=== PATIENT | male | born 1935 | race Caucasian/White ===

== ENCOUNTER 2016-06-15 12:58 | Emergency (ER) | payer MEDICARE, OTHER ==
[~2016-06-15] VITALS: Ht 175.3 cm; Wt 103.0 kg
[~2016-06-15 12:58] MED LIST: ASPI-860 PO; HCT25T PO; IBUP1TAB14 PO; MELA1TAB19 PO; OMEG1CAP24 PO; UBID100C8 PO
--- OUTSIDE RECORDS SUMMARY | 2016-06-15 13:02 | XMS REPORT | Continuity of Care Document ---
Author Author [facility] Organization [facility] Address Unknown Phone Unavailable Care Team Providers Care Air Deodorizer Servicer Name Role Phone MaryRex zavala PCP [phone] Source Comments Some departments are not documenting in the electronic medical record. If you do not see the information that you expected, contact Release of Information in the Health Information Management department at [phone] for further assistance in locating additional records.[facility] Active Allergies and Adverse Reactions Allergen Noted Date Severity Reactions Comments Benazepril 10/10/2014 Low COUGH Pcn 10/10/2014 Medium HIVES Current Medications Prescription Sig. Disp. Refills Start End Date Status Date Ibuprofen-Diphenhydramine Take 2 Caps by mouth at Active HCl (ADVIL PM) 200-25 mg bedtime daily. cap aspirin 81 mg chewable Take 81 mg by mouth Active tablet daily. coenzyme Q10(+) 100 mg Take 100 mg by mouth Active cap twice daily. hydrochlorothiazide Take 25 mg by mouth Active (HYDRODIURIL) 25 mg daily. tablet melatonin 10 mg tab Take 1 Tab by mouth at Active bedtime daily. guaiFENesin LA (MUCINEX) Take 600 mg by mouth Active 600 mg tablet twice daily as needed. GLUCOSAMINE HCL/CHONDR MARRERO Take 1 Tab by mouth twice Active A NA (OSTEO BI-FLEX PO) daily. metoprolol (LOPRESSOR) 25 Take 25 mg by mouth twice Active mg tablet daily. losartan (COZAAR) 25 mg Take 12.5 mg by mouth Active tablet daily. amiodarone (PACERONE) 100 Take 100 mg by mouth Active mg tablet daily. Active Problems Problem Noted Date NUBIA (obstructive sleep apnea) 11/22/2014 VT (ventricular tachycardia) ([facility]) 11/21/2014 Overview: 09/21/14 Several episodes of near syncope: HM applied. 4/16/15 HM: Sustained, 30-45 sec runs of VT at rate of 190 bpm. Started on metaprolol and losartan. 09/29/14 ECHO: EF 43% - Decrease in EF from 2006 at 65-70%. Trace-mild MR, Trace AR and Trace TI. PAP is normal. Impaired LV diastolic compliance. 10/11/14 [id number] LV function. VT originating from LV summit area, possibly epicarial. Unsuccessful ablation of the clinical VT and PVC's, possibly modified. Inducible VT was noted at the end of the procedure. 10/13/14 VT RFA (DJL) Normal LV function.. VT originating from LVOT area (anterior and septal). Successful ablation of the clinical VT's and PVC's, antegrade and retrograde. Inducible VT's different than clinical ones were noted at the end of the procedure. Resume amio and mexiletine 10/14/14 ECOD-Moderately depressed left ventricular systolic function. EF~ 40%, Sclerotic aortic valve, No significant pericardial effusion, Mildly dilated sinuses of valsalva 11/03/[address] Sonny Fraga Cardiology ([facility] [place], [place]). Patient has not had recurrent episodes of VT that he was aware of since his RFA. L ast Assessment & Plan: No further ventricular arrhythmias post ablation. His amiodarone was decreased to 100 mg daily and his mexiletine was decreased to 150 mg twice daily. Acute blood loss anemia 10/17/2014 HLD (hyperlipidemia) 10/12/2014 Last Assessment & Plan: On recommended statin therapy. CAD (coronary artery disease) 10/10/2014 Overview: Cath on 10/03/14 at [facility] with non obstructive CAD - LAD with 70%, 30% in circ L ast Assessment & Plan: Mr. Rushing denies any new symptomatic complaints suggestive of ischemia. HTN (hypertension) 10/10/2014 ICD (implantable cardioverter-defibrillator) in place 10/10/2014 Overview: 10/04/14 - Medtronic dual chamber ICD - MDT Kimberlyn WEI DR - placed at [facility] L ast Assessment & Plan: Device was checked today and demonstrated normal function. See device check and cardiovascular studies for further details. Social History Tobacco Use Types Packs/Day Years Used Date Former Smoker 2 Quit: 06/09/1963 Smokeless Tobacco: Never Used Last Filed Vital Signs Vital Sign Reading Time Taken Blood Pressure 122/78 11/14/2015 1:36 PM CDT Pulse 64 11/14/2015 1:36 PM CDT Temperature 36.8 C (98.2 F) 10/19/2014 8:00 AM CDT Respiratory Rate - - Height 1.753 m (5' 9.02") 11/14/2015 1:36 PM CDT Weight 101.696 kg (224 lb 3.2 11/14/2015 1:36 PM CDT oz) Body Mass Index 33.09 11/14/2015 1:36 PM CDT Oxygen Saturation 97% 10/19/2014 8:00 AM CDT Plan of Care Health Maintenance Due Date Last Done Comments Physical (Comprehensive) 09/25/1942 Exam Pertussis Vaccine 09/25/1946 Tetanus Vaccine 09/25/1952 Shingles Vaccine 1995 Prevnar/Pneumovax (#1) 09/25/2000 Influenza Vaccine 02/08/2016 Results from Last 3 Months Not on file
--- OUTSIDE RECORDS SUMMARY | 2016-06-15 13:04 | XMS REPORT | Continuity of Care Document ---
Author Author [facility] Organization [facility] Address Unknown Phone Unavailable Care Team Providers Care Water Reuse Program Manager Name Role Phone MaryRex zavala PCP [phone] Source Comments Some departments are not documenting in the electronic medical record. If you do not see the information that you expected, contact Release of Information in the Health Information Management department at [phone] for further assistance in locating additional records.[facility] Active Allergies and Adverse Reactions Allergen Noted [...] apnea) 11/22/2014 VT (ventricular tachycardia) ([facility]) 11/21/2014 Overview: 09/21/14 Several episodes of near syncope: HM applied. 4/16/15 HM: Sustained, 30-45 sec runs of VT at rate of 190 bpm. Started on metaprolol and losartan. 09/29/14 ECHO: EF 43% - Decrease in EF from 2006 at 65-70%. Trace-mild MR, Trace AR and Trace TI. PAP is normal. Impaired LV diastolic compliance. 10/11/14 [id number] LV function. VT originating from LV summit [...] Dr. Sonny Fraga Cardiology ([facility] [place], [place]). Patient has not had recurrent episodes [...] disease) 10/10/2014 Overview: Cath on 10/03/14 at [facility] with non obstructive CAD - LAD with 70%, 30% in circ L ast Assessment & Plan: Mr. Rushing denies any new symptomatic complaints suggestive of ischemia. HTN (hypertension) 10/10/2014 ICD (implantable cardioverter-defibrillator) in place 10/10/2014 Overview: 10/04/14 - Medtronic dual chamber ICD - MDT Kimberlyn WEI DR - placed at [facility] L ast Assessment & Plan: Device was [...]
[2016-06-15 13:44] VITALS: BP 120/85
== END 2016-06-15 13:40 | disposition home or self-care (01) ==
LOC: ED 13:00
DX: L98.9 Disorder of the skin and subcutaneous tissue, unspecified (principal)
CPT/HCPCS: 99281; 99282

== ENCOUNTER → 2016-07-01 | Outpatient (CLI) | payer MEDICARE, OTHER ==
[2016-07-01 13:24] LABS: ALBUMIN 4.3 g/dL (3.4-5.0); TOTAL PROTEIN 7.1 g/dL (6.4-8.5)
== END ==
LOC: LAB 13:05
PROVIDERS: ATTEND Internal Medicine
DX: R74.8 Abnormal levels of other serum enzymes (principal)
CPT/HCPCS: 36415; 80076

== ENCOUNTER → 2016-08-06 | Outpatient (CLI) | payer MEDICARE, OTHER ==
[2016-08-06 11:05] LABS: ALBUMIN 4.5 g/dL (3.4-5.0); TOTAL PROTEIN 7.4 g/dL (6.4-8.5)
== END ==
LOC: LAB 10:46
PROVIDERS: ATTEND Internal Medicine
DX: R74.8 Abnormal levels of other serum enzymes (principal)
CPT/HCPCS: 36415; 80076